=== PATIENT | male | born 1945 | race Caucasian/White ===

== ENCOUNTER 2021-10-21 09:38 | Outpatient (REF) | payer MEDICARE, OTHER, SELFPAY ==
[2021-10-21 12:30] LABS: Vitamin B12 247 pg/mL (200-900)
== END 2021-10-21 09:39 | disposition home or self-care (01) ==
LOC: HO.LAB 09:38
PROVIDERS: Visit Provider Psychiatry & Neurology Neurology
DX: G20 Parkinson's disease (principal)
CPT/HCPCS: 36415; 82607

== ENCOUNTER 2023-06-23 07:34 | Outpatient (AMB) | payer MEDICARE, OTHER, SELFPAY ==
--- NOTE | 2023-06-23 07:41 | MHC.OFFVIS ---
Intake Vital Signs 06/23/23 07:49 Height 5 ft 6 in Weight 200 lb BMI 32.3 BP 168/90 H Blood Pressure Location Rt brachial Position Sitting Respiration 17 Pulse 65 Pulse Source Pulse Oximeter Pulse Oximetry (%) 98 Oxygen Delivery Method Room Air Intake Visit Reasons: Parkinsons/Dementia Intake Note: Pt presents for new pt evaluation for Parkinson's and Alzheimer's. Office Technology Instructor Required: No Allergies Penicillins Allergy (Mild, Verified 06/23/23 07:43) Rash HPI HPI Comments History of Present Illness Details 77y/o male comes for further management of dementia, Parkinsons disease and frequent falls. He is accompanied by his son who helps with history . He was diagnosed with Parkinsons disease about 6-7 years ago while he was residing in [place]. His main symptoms were slow movement , slow walking with loss of balance . He moved to [place] to live with his son about 3 years ago and now he is in a Memory Care Unit Assisted Living at [facility] .He was diagnosed with Dementia by a neurologist about 3 years ago. His current issues are impulsive behavior and frequent falls, hallucinations. He is dependant on all his ADLs except for feeding himself. 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 His falls are usually when he walks backwards , side ways or bending down . He also falls when he is transitioning and most falls are impulsive and daily. He is in a wheel chair and has 1 on 1 supervision for 8 hrs a day.He denies dizziness. His falls are mostly late at night , morning. He has on and off hallucinations- mild and delusions.His cognition is worse in the evening and he had more delusions No known family h/o dementia [facility] Medical History (Updated 06/23/23 @ 08:42 by Giselle Renteria MD) Frequent falls Dementia Parkinson's disease without dyskinesia Tricuspid regurgitation Skin cancer Arthritis Orthostatic hypotension Gout HTN (hypertension) Endocarditis BPH (benign prostatic hyperplasia) Pericarditis Angina at rest Surgical History S/P Mohs surgery for basal cell carcinoma H/O eye surgery Social History Household Members: Other Housing: Assisted Living Facility Alcohol intake: never Patient Tobacco Use Status: Never used Tobacco Use of substances other than those prescribed or required for medical reasons: No Physical Exam Vital Signs: Last Vital Signs Pulse 65 06/23/23 07:49 Resp 17 06/23/23 07:49 BP 168/90 H 06/23/23 07:49 Pulse Ox 98 06/23/23 07:49 Oxygen Delivery Method Room Air 06/23/23 07:49 BMI result Body Mass Index 32.3 Const General: cooperative and no acute distress Nutritional Appearance: average body habitus Orientation/consciousness: oriented to place Neuro Other: Moderately decreased facial expression and blink No tremors Moderate bradykinesia L>R No cog wheel rigidity FFM and foot taps mildly decreased L>R Voice- hypophonia In wheel chair - very impulsive while walking - needed assistance due to poor balance, stooped small steps General: oriented to place, moves all extremities and no focal motor deficits Cranial nerves: Yes Bilaterally intact EOM present, Yes Nystagmus not present, Yes Normal facial strength present and Yes Midline tongue present Cognition (Neuro): abnormal cognition Motor exam (neuro): 5/5 motor strength present throughout and Normal motor muscle tone present throughout Deep tendon reflexes (DTR's): Right triceps reflex intensity grade: 2+, Left triceps reflex intensity grade: 2+, Rt Biceps (C5, C6): 2+, Left biceps reflex intensity grade: 2+, Right brachioradialis reflex intensity grade: 2+, Left brachioradialis reflex intensity grade: 2+, Right patellar reflex intensity grade: 2+ and Left patellar reflex intensity grade: 2+ Coordination: [id number] test normal Orientation Where are we (state) (county) (town or city) (hospital) (floor)?: state, county, town or city, hospital/clinic and floor Registration Name of 3 unrelated objects clearly and slowly, then ask patient to repeat all 3 of them. (1st repeat determines score. Make sure they can repeat all three): object 2 and object 3 Attention & Calculation (CHOOSE ONE) Spell WORLD backwards (DLROW): 3 letters Recall Ask patient to repeat the 3 items from question #3.: object 3 Language Show patient a wristwatch & ask what it is. Repeat for pencil.: watch and pencil Ask the patient to 'take a piece of paper with their right hand' 'fold paper in half' 'place paper on floor': take paper in right hand Score Score: 14 Assessment & Plan Assessment & Plan (1) Dementia: Comment: Likely Alzheimers- advanced with sundowning delusions and hallucinations Code(s): F03.90 - Unspecified dementia, unspecified severity, without behavioral disturbance, psychotic disturbance, mood disturbance, and anxiety (2) Parkinson's disease without dyskinesia: Code(s): G20.A1 - Parkinson's disease without dyskinesia, without mention of fluctuations (3) Orthostatic hypotension: Code(s): I95.1 - Orthostatic hypotension (4) Frequent falls: Comment: cognitive and behavioral falls due to impulsivity poor judgement Code(s): R29.6 - Repeated falls Plan Change carbidopa/levodopa to 1.5tabs qid Continue rivastigmine 1.5mg bid Trial patient on memantine XR 7mg qd and titrate by 7 mg every 2 weeks to a maximum of 28mg qd He needs constant supervision to avoid falls . Coding Level of Care Code New Pt Level 4 (88272) Diagnoses Dementia F03.90 Parkinson's disease without dyskinesia G20.A1 Orthostatic hypotension I95.1 Frequent falls R29.6
[2023-06-23 07:49] VITALS: BP 168/90; PULSE 65; RESP 17; O2SAT 98; BMI 32.3
== END 2023-06-23 08:48 | disposition home or self-care (01) ==
PROVIDERS: PCP Nurse Practitioner Acute Care; Visit Provider Psychiatry & Neurology Neurology
DX: F03.90 Unspecified dementia, unspecified severity, without behavioral disturbance, psychotic disturbance, mood disturbance, and anxiety (principal); G20.A1 Parkinson's disease without dyskinesia, without mention of fluctuations; I95.1 Orthostatic hypotension; R29.6 Repeated falls
CPT/HCPCS: 99204

== ENCOUNTER → 2023-06-23 07:34 | Outpatient (BNVA) | payer MEDICARE, OTHER, SELFPAY | PROVIDERS: Visit Provider Psychiatry & Neurology Neurology | DX: G20.A1 Parkinson's disease without dyskinesia, without mention of fluctuations (principal); F03.90 Unspecified dementia, unspecified severity, without behavioral disturbance, psychotic disturbance, mood disturbance, and anxiety; I95.1 Orthostatic hypotension; R29.6 Repeated falls | CPT/HCPCS: 99202 ==

== ENCOUNTER 2023-09-08 06:56 | Outpatient (REF) | payer MEDICARE, OTHER, SELFPAY ==
[2023-09-08 07:00] LABS: MANUAL DIFF FLAG NO
[2023-09-08 07:47] LABS: Basophils Percent Auto 0.5 % (0-2); Eosinophils Absolute Auto 0.1 X10*3/uL (0.0-0.4); Eosinophils Percent Auto 1.6 % (0-4); Hematocrit 41.2 % (42.0-52.0); Hemoglobin 13.8 g/dl (14.0-18.0); Imm Gran Abs Auto 0.06 X10*3/uL (0.00-0.03); Imm Gran Pct Auto 0.8 % (0.0-0.4); Lymphocytes Absolute Auto 1.8 X10*3/uL (1.2-4.9); Lymphocytes Percent Auto 23.3 % (20-40); Mean Corpuscular HGB Conc 33.5 g/dl (31.0-36.0); Mean Corpuscular Hemoglobin 28.8 pg (27.0-33.0); Mean Platelet Volume 9.5 fL (9.4-12.4); Monocytes Absolute Auto 0.5 X10*3/uL (0.1-1.2); Monocytes Percent Auto 6.2 % (2-11); Neutrophils Absolute Auto 5.2 x10*3/uL (2.0-8.3); Neutrophils Percent Auto 67.6 % (45-73); Platelet Count 188 X10*3/uL (160-400); Red Blood Count 4.79 X10*6/uL (4.60-5.80); Red Cell Distribution Width 15.1 % (11.0-16.0); White Blood Count 7.7 X10*3/uL (4.8-10.8)
[2023-09-08 08:06] LABS: Alanine Aminotransferase 6 U/L (0-40); Albumin Level 4.2 g/dL (3.5-5.0); Alkaline Phosphatase 102 U/L (39-117); Anion Gap 13 (12-20); Aspartate Amino Transferase 11 U/L (5-37); Bilirubin Total 0.6 mg/dL (0.0-1.0); Blood Urea Nitrogen 15 mg/dL (9-16); Calcium 9.2 mg/dL (8.4-10.2); Carbon Dioxide 25 mmol/L (22-29); Chloride 109 mmol/L (96-108); Cholesterol 107 mg/dL (<200); Estimated Glomerular Filt Rate > 60; Glucose Random 87 mg/dL (60-115); HDL Cholesterol 29 mg/dL (>40); LDL Cholesterol Calculated 65 mg/dL (<100); Magnesium 2.1 mg/dL (1.6-2.6); Sodium 143 mmol/L (135-145); Total Protein 6.3 g/dL (6.5-8.0); Triglycerides 65 mg/dL (<150)
[2023-09-08 08:21] LABS: Thyroid Stimulating Hormone 1.93 uIU/mL (0.32-4.0); Vitamin D 25-OH Total 25.4 ng/mL (>30)
[2023-09-08 08:30] LABS: Vitamin B12 529 pg/mL (200-900)
[2023-09-10 23:43] LABS: TS Negative Control Passed; TS Panel A 1; TS Panel B 0; TS Positive Control Passed; TSpotTB Negative (Negative)
== END 2023-09-08 06:57 | disposition home or self-care (01) ==
LOC: HO.HSH1N 06:56
PROVIDERS: Visit Provider Internal Medicine Interventional Cardiology
DX: I10 Essential (primary) hypertension (principal); E78.5 Hyperlipidemia, unspecified
CPT/HCPCS: 36415; 80053; 80061; 82306; 82607; 83735; 84443; 85025; 86481

== ENCOUNTER 2023-09-19 00:35 | Outpatient (REF) | payer MEDICARE, OTHER, SELFPAY ==
[2023-09-19 00:54] LABS: Appearance Urine Clear; Color Urine Yellow; Glucose Urine UA Negative (Negative); Leukocyte Esterase Urine Negative (Negative); Nitrite Urine Negative (Negative); Urine Blood Negative (Negative); Urine Ketones Trace mg/dL (Negative); Urine Protein Negative (Neg-Trace)
== END 2023-09-19 00:36 | disposition home or self-care (01) ==
LOC: HO.LNP 00:35
PROVIDERS: PCP Nurse Practitioner Acute Care; Visit Provider Nurse Practitioner Acute Care
DX: R30.0 Dysuria (principal); R45.1 Restlessness and agitation
CPT/HCPCS: 81003

== ENCOUNTER 2023-10-27 23:05 | Emergency (ER) | payer MEDICARE, OTHER, SELFPAY ==
--- NOTE | ~2023-10-27 | CT_ITS ---
EXAMINATION: HEAD CT WITHOUT CONTRAST CERVICAL SPINE CT WITHOUT CONTRAST CLINICAL INFORMATION: Head strike. Fall. Pain. Right neck pain. COMPARISON: None. TECHNIQUE: Contiguous axial imaging of the head was performed without the administration of IV contrast. Axial multidetector volumetric images were also performed through the cervical spine without intravenous contrast. Multiplanar reconstructed images in coronal and sagittal orientations were submitted. This CT examination was performed using dose optimization techniques as appropriate, variously including the following: *Automated exposure control *Adjustment of mA and/or kV according to patient size (this includes techniques or standardized protocols for targeted exams where dose is matched to indication/reason for exam; i.e. extremities or head) *Use of iterative reconstruction technique DOSE: 1041 mGy-cm FINDINGS: HEAD: There is no evidence of acute intracranial hemorrhage or territorial infarction. No abnormal mass-effect or midline shift. No extra-axial fluid collections. Palafox to white matter differentiation is well preserved. Moderate enlargement of the ventricles, sulci, and extra-axial CSF spaces is indicative of parenchymal volume loss. A few foci of hypoattenuation in the subcortical and periventricular white matter are most consistent with chronic microangiopathic changes. Calcific atherosclerosis is present within the cavernous segments of the internal carotid arteries. Globes are pseudophakic. Focal subcutaneous edema is noted in the left posterolateral scalp. No hematoma. No fracture or malalignment. The sinuses and mastoid air cells are clear. CERVICAL SPINE: Vertebral body heights are normal. No fractures of the vertebral bodies or posterior elements. There is grade 1 anterolisthesis of C7 on T1 by 3 mm, likely related to facet arthropathy at this level. No additional spondylolisthesis.. Degenerative changes are present at the craniocervical and atlantoaxial articulations, though normal alignment is maintained. Mild to moderate multilevel degenerative disc disease in cervical spine is characterized primarily by large anterior osteophytes. Multiple osteophytes are fragmented, though these sites of fragmentation does not appear acute. Specifically, no acute fractures are identified at the osteophytes. Moderate multilevel facet arthropathy. Posterior disc ascitic protrusion the cervical spine at C2-C3, C3-C4, and C6-C7 produce at least [id number] central canal narrowing. Uncovertebral and facet osteophytes produce neural foraminal encroachment on the left C3-C4 and on the right at C6-C7. No significant paravertebral soft tissue swelling. Atherosclerotic calcifications are present in the carotid arteries. Imaged portions of the lung apices are clear. CT/CT cervical spine wo IV con IMPRESSION: 1. No acute intracranial pathology. Focal subcutaneous edema in the left posterolateral scalp. No underlying fractures. 2. No acute fracture or acute malalignment in the cervical spine. 3. Mild to moderate multilevel degenerative disc disease and facet arthropathy with grade 1 anterolisthesis of C7 on T1.
--- NOTE | ~2023-10-27 | CT_ITS ---
EXAMINATION: HEAD CT WITHOUT CONTRAST CERVICAL SPINE CT WITHOUT CONTRAST CLINICAL INFORMATION: Head strike. Fall. Pain. Right neck pain. COMPARISON: None. TECHNIQUE: Contiguous axial imaging of the head was performed without the administration of IV contrast. Axial multidetector volumetric images were also performed through the cervical spine without intravenous contrast. Multiplanar reconstructed images in coronal and sagittal orientations were submitted. This CT examination was performed using dose optimization techniques as appropriate, variously including the following: *Automated exposure control *Adjustment of mA and/or kV according to patient size (this includes techniques or standardized protocols for targeted exams where dose is matched to indication/reason for exam; i.e. extremities or head) *Use of iterative reconstruction technique DOSE: 1041 mGy-cm FINDINGS: HEAD: There is no evidence of acute intracranial hemorrhage or territorial infarction. No abnormal mass-effect or midline shift. No extra-axial fluid collections. Palafox to white matter differentiation is well preserved. Moderate enlargement of the ventricles, sulci, and extra-axial CSF spaces is indicative of parenchymal volume loss. A few foci of hypoattenuation in the subcortical and periventricular white matter are most consistent with chronic microangiopathic changes. Calcific atherosclerosis is present within the cavernous segments of the internal carotid arteries. Globes are pseudophakic. Focal subcutaneous edema is noted in the left posterolateral scalp. No hematoma. No fracture or malalignment. The sinuses and mastoid air cells are clear. CERVICAL SPINE: Vertebral body heights are normal. No fractures of the vertebral bodies or posterior elements. There is grade 1 anterolisthesis of C7 on T1 by 3 mm, likely related to facet arthropathy at this level. No additional spondylolisthesis.. Degenerative changes are present at the craniocervical and atlantoaxial articulations, though normal alignment is maintained. Mild to moderate multilevel degenerative disc disease in cervical spine is characterized primarily by large anterior osteophytes. Multiple osteophytes are fragmented, though these sites of fragmentation does not appear acute. Specifically, no acute fractures are identified at the osteophytes. Moderate multilevel facet arthropathy. Posterior disc ascitic protrusion the cervical spine at C2-C3, C3-C4, and C6-C7 produce at least [id number] central canal narrowing. Uncovertebral and facet osteophytes produce neural foraminal encroachment on the left C3-C4 and on the right at C6-C7. No significant paravertebral soft tissue swelling. Atherosclerotic calcifications are present in the carotid arteries. Imaged portions of the lung apices are clear. CT/CT head/brain wo IV con IMPRESSION: 1. No acute intracranial pathology. Focal subcutaneous edema in the left posterolateral scalp. No underlying fractures. 2. No acute fracture or acute malalignment in the cervical spine. 3. Mild to moderate multilevel degenerative disc disease and facet arthropathy with grade 1 anterolisthesis of C7 on T1.
[2023-10-27 23:25] VITALS: BP 136/93; BP 144/86; PULSE 59; RESP 18; TEMP 36.8; O2SAT 100; O2SAT 97; BMI 32.1
--- NOTE | 2023-10-27 23:48 | ED.FALL ---
HPI - Fall General Chief Complaint: Fall Stated Complaint: fall Time Seen by Provider: 10/27/23 23:39 Source: patient and EMS Mode of arrival: EMS Limitations: no limitations History of Present Illness ED Provider: Dr. Debbie Winters HPI Narrative: [facility]. Patient states that he was transferring from his wheelchair to a chair, his wheelchair got away and he landed on the floor hitting the back of his head. Patient denies loss of consciousness, patient complaining of right-sided neck pain posteriorly. Patient denies any extremity pain or back pain. Patient known to take Plavix. Related Data Home Medications ?Medication ?Instructions ?Recorded ?Confirmed allopurinol 100 mg tablet 100 mg PO DAILY 06/23/23 atorvastatin 20 mg tablet 20 mg PO DAILY 06/23/23 calcium carbonate (Antacid 200 mg PO BID 06/23/23 (calcium carbonate)) carbidopa 25 mg-levodopa 100 mg 2 tab PO QID 06/23/23 tablet (Sinemet) clopidogrel 75 mg tablet (Plavix) 75 mg PO DAILY 06/23/23 folic acid 1 mg tablet 1 mg PO DAILY 06/23/23 magnesium oxide 200 mg PO DAILY 06/23/23 mecobalamin (vitamin B12) 1,000 1,000 mcg PO DAILY 06/23/23 mcg chewable tablet melatonin 3 mg capsule 3 mg PO BEDTIME PRN 06/23/23 nystatin 100,000 unit/gram topical 1 appl topical DAILY 06/23/23 powder pantoprazole 20 mg tablet,delayed 20 mg PO DAILY 06/23/23 release prednisone 10 mg tablet 10 mg PO DIRECTED 06/23/23 psyllium husk 0.4 gram capsule 0.4 g PO DAILY 06/23/23 (Daily Fiber) quetiapine 25 mg tablet (Seroquel) 25 mg PO BEDTIME 06/23/23 rivastigmine tartrate 1.5 mg 1.5 mg PO BID 06/23/23 capsule sennosides 8.6 mg capsule (senna) 8.6 mg PO BEDTIME 06/23/23 sertraline 100 mg tablet 100 mg PO DAILY 06/23/23 tamsulosin 0.4 mg capsule 0.4 mg PO DAILY 06/23/23 valsartan 40 mg tablet 40 mg PO BID 06/23/23 Allergies Allergy/AdvReac Type Severity Reaction Status Date / Time Penicillins Allergy Mild Rash Verified 10/27/23 23:28 Review of Systems Review of Systems: Constitutional : No Weight loss, No Fever, No Chills, No Night Sweats, No Fatigue, No Malaise ENT/Mouth : No Hearing loss, No Ear Pain, No Nasal Congestion, No Sinus Pain, No Hoarseness, No sore throat, No Rhinorrhea, No Swallowing Difficulty Eyes: No Eye Pain, No Swelling, No Redness, No Foreign Body, No Discharge, No Vision Changes Cardiovascular : No Chest Pain, No SOB, No Dyspnea on Exertion, No Orthopnea, No Edema, No Palpitations Respiratory : No Cough, No Sputum, No Wheezing, No Smoke Exposure, No Dyspnea Gastrointestinal : No Nausea, No Vomiting, No Diarrhea, No Constipation, No abdominal Pain, No Hematochezia, No Melena Genitourinary : no irregular bleeding, No Dysuria, No Urinary Frequency, No Hematuria, No Urinary Incontinence, No Urgency, No Flank Pain, No Urinary Flow Changes, No Hesitancy Musculoskeletal : Complaining of right-sided neck pain, No Myalgias, No Joint Swelling Skin : No Skin Lesions, No rash Neuro : No Weakness, No Numbness, No Paresthesias, No Loss of Consciousness, No Dizziness, No Headache Psych : No Anxiety/Panic, No Depression, No SI/HI/AH/VH, No Social Issues, Heme/Lymph: No Bruising, No Bleeding,No Lymphadenopathy Endocrine : No Polyuria, No Polydipsia, No Temperature Intolerance PMFSH Past Medical History Medical History Frequent falls Dementia Parkinson's disease without dyskinesia Tricuspid regurgitation Skin cancer Arthritis Orthostatic hypotension Gout HTN (hypertension) Endocarditis BPH (benign prostatic hyperplasia) Pericarditis Angina at rest Surgical History S/P Mohs surgery for basal cell carcinoma H/O eye surgery Social History Social History Household Members: Other Housing: Assisted Living Facility Alcohol intake: never Patient Tobacco Use Status: Never used Tobacco Smoked in Last 30 Days: No Use of substances other than those prescribed or required for medical reasons: No Advance Directives: No Advance Directives Information Provided: Yes Do you have a plan to hurt others: No Plan Physical Exam Vital Signs: Vital Signs: Last Vital Signs Temp 98.0 F 10/28/23 00:39 Pulse 61 10/28/23 00:39 Resp 18 10/28/23 00:39 BP 180/98 H 10/28/23 00:39 Pulse Ox 96 10/28/23 00:39 O2 Del Method Room Air 10/28/23 00:39 BMI result Body Mass Index 32.1 Const: Other: Appearance: Alert. Oriented X2. No acute distress. Eyes: Pupils equal, round and reactive to light. ENT: Pharynx normal. Neck: Patient on C-collar, pain to palpation on the right aspect of the neck CVS: Normal heart rate and rhythm. Pulses normal. Normal S1 and S2 Respiratory: No respiratory distress. Breath sounds normal. No Wheezing. No rales Abdomen: Soft and nontender. No rigidity. No distention. Skin: Skin warm and dry. Normal skin color. Normal skin turgor. Extremities: No lower extremity edema. No Lacerations. No Rash Neuro: Oriented X 2. No motor deficit. No sensory deficit. Moving all extremities. No slurred speech. CN 2 through 12 grossly intact Psych: calm, cooperative, normal affect Course Course Course Narrative: -patient's vitals are stable, patient declined pain medication, states that he feels well -CT scans and urinalysis pending Medical Decision Making Medical Decision Making [facility] Narrative: -my interpretation of labs: Urinalysis negative -my interpretation of CT scan: No intracranial bleed, no acute findings. -[facility] Differential Diagnosis Differential Diagnoses: The differential diagnosis associated with the presentation includes (Mechanical fall, UTI, generalized weakness, deconditioning, Parkinson's, cervical spine injury, intracranial bleed) Admission/Observation Consideration of admission/observation: Escalation of care including admission/observation considered (Given patient's complaint of pain and mechanism of injury, observation was considered) Lab Data [facility] Lab Attestation statement: I reviewed the patient's lab results. Labs: Lab Results 10/28/23 Range/Units 00:14 Urine Color Yellow Urine Appearance Clear Urine pH 5.5 (5.0-9.0) Ur Specific [place] 1.010 (1.005-1.025) Urine Protein Negative (Neg-Trace) mg/dL Urine Glucose (UA) Negative (Negative) mg/dL Urine Ketones Negative (Negative) mg/dL Urine Blood Negative (Negative) Urine Nitrite Negative (Negative) Ur Leukocyte Esterase Negative (Negative) Independent Interpretation I performed an independent interpretation of an: CT Scan Interpretation: HEAD: There is no evidence of acute intracranial hemorrhage or territorial infarction. No abnormal mass-effect or midline shift. No extra-axial fluid collections. Palafox to white matter differentiation is well preserved. Moderate enlargement of the ventricles, sulci, and extra-axial CSF spaces is indicative of parenchymal volume loss. A few foci of hypoattenuation in the subcortical and periventricular white matter are most consistent with chronic microangiopathic changes. Calcific atherosclerosis is present within the cavernous segments of the internal carotid arteries. Globes are pseudophakic. Focal subcutaneous edema is noted in the left posterolateral scalp. No hematoma. No fracture or malalignment. The sinuses and mastoid air cells are clear. CERVICAL SPINE: Vertebral body heights are normal. No fractures of the vertebral bodies or posterior elements. There is grade 1 anterolisthesis of C7 on T1 by 3 mm, likely related to facet arthropathy at this level. No additional spondylolisthesis.. Degenerative changes are present at the craniocervical and atlantoaxial articulations, though normal alignment is maintained. Mild to moderate multilevel degenerative disc disease in cervical spine is characterized primarily by large anterior osteophytes. Multiple osteophytes are fragmented, though these sites of fragmentation does not appear acute. Specifically, no acute fractures are identified at the osteophytes. Moderate multilevel facet arthropathy. Posterior disc ascitic protrusion the cervical spine at C2-C3, C3-C4, and C6-C7 produce at least [id number] central canal narrowing. Uncovertebral and facet osteophytes produce neural foraminal encroachment on the left C3-C4 and on the right at C6-C7. No significant paravertebral soft tissue swelling. Atherosclerotic calcifications are present in the carotid arteries. Imaged portions of the lung apices are clear. CT/CT head/brain wo IV con IMPRESSION: 1. No acute intracranial pathology. Focal subcutaneous edema in the left posterolateral scalp. No underlying fractures. 2. No acute fracture or acute malalignment in the cervical spine. 3. Mild to moderate multilevel degenerative disc disease and facet arthropathy with grade 1 anterolisthesis of C7 on T1. Critical Care Time Critical Care Time Critical Care Time: Yes Total Critical Care Time: 35 Attestation: I have personally provided critical care time. Time includes review of lab data, radiology results, discussion with consultants, and monitoring for potential decompensation. Intervention performed as documented. Discharge Plan Discharge Clinical Impression: Frequent falls Patient Disposition: er [facility] Instructions: Fall Prevention for Older Adults (ED) Additional Instructions: Please follow-up with your primary care physician tomorrow. If you have any worsening or new symptoms, please return to the emergency room or call 911 Prescriptions: No Action tamsulosin 0.4 mg capsule 0.4 mg PO DAILY clopidogrel [Plavix] 75 mg tablet 75 mg PO DAILY mecobalamin (vitamin B12) 1,000 mcg tablet,chewable 1,000 mcg PO DAILY allopurinol 100 mg tablet 100 mg PO DAILY sertraline 100 mg tablet 100 mg PO DAILY calcium carbonate [Antacid (calcium carbonate)] 200 mg calcium (500 mg) tablet,chewable 200 mg PO BID magnesium oxide 200 mg magnesium tablet 200 mg PO DAILY psyllium husk [Daily Fiber] 0.4 gram capsule 0.4 g PO DAILY quetiapine [Seroquel] 25 mg tablet 25 mg PO BEDTIME rivastigmine tartrate 1.5 mg capsule 1.5 mg PO BID nystatin 100,000 unit/gram powder 1 appl topical DAILY melatonin 3 mg capsule 3 mg PO BEDTIME PRN folic acid 1 mg tablet 1 mg PO DAILY senna 8.6 mg capsule 8.6 mg PO BEDTIME pantoprazole 20 mg tablet,delayed release (DR/EC) 20 mg PO DAILY atorvastatin 20 mg tablet 20 mg PO DAILY carbidopa-levodopa [Sinemet] 25-100 mg tablet 2 tab PO QID prednisone 10 mg tablet 10 mg PO DIRECTED Rx Instructions: see taper instructions valsartan 40 mg tablet 40 mg PO BID Rx Instructions: 1.5 tabs daily Print Language: Kinyarwanda
[2023-10-28 00:21] LABS: Appearance Urine Clear; Color Urine Yellow; Glucose Urine UA Negative (Negative); Leukocyte Esterase Urine Negative (Negative); Nitrite Urine Negative (Negative); PH 5.5 (5.0-9.0); Urine Blood Negative (Negative); Urine Ketones Negative (Negative); Urine Protein Negative (Neg-Trace)
[2023-10-28 00:39] VITALS: BP 180/98; PULSE 61; RESP 18; TEMP 36.7; O2SAT 96
--- NOTE | 2023-10-28 00:40 | MHC.EDTECH ---
Rounds and vitals completed,BP is elevated RN made aware, Patient was incont. of a large amount of urine,felicitas care given and linen changed,pt repositioned to comfort,call solitario in reach
--- NOTE | 2023-10-28 01:03 | PC.NURSE ---
C-Collar removed per Dr. Winters
[2023-10-28 01:10] VITALS: BP 180/98; PULSE 61; RESP 18; TEMP 36.7; O2SAT 96
--- NOTE | 2023-10-28 01:15 | PC.NURSE ---
Spoke with Natali DOWD table games floor supervisor at [facility] to let her know the results of CT and urinalysis. Patient will return via ambulance
== END 2023-10-28 01:30 | disposition skilled nursing facility (03) ==
PROVIDERS: Emergency Provider Emergency Medicine
DX: S09.90XA Unspecified injury of head, initial encounter (principal); M54.2 Cervicalgia; R51.9 Headache, unspecified; W05.0XXA Fall from non-moving wheelchair, initial encounter; Y93.89 Activity, other specified; Y92.89 Other specified places as the place of occurrence of the external cause; Y99.8 Other external cause status
CPT/HCPCS: 70450; 72125; 81003; 99284

== ENCOUNTER 2024-03-14 18:27 | Outpatient (REF) | payer MEDICARE, OTHER, SELFPAY ==
--- OUTSIDE RECORDS SUMMARY | 2024-03-14 18:30 | XMS_ITS | Continuity of Care Document ---
Author Organization [facility] Address [address] [place] [address] Phone Care Team Providers Care Sales Account Leader Name Role Phone Unavailable Unavailable Unavailable Procedures Procedure Date EKG Interpretation Advance Directives Directive Yes / No Effective Date File Name No Information Encounters Encounter Description Practice Location Reason(s) For Visit Diagnoses Date Provider Providers Copied on Encounter [facility], [address], [place], [place], [id number], [place] tel:[phone] [facility] [place] Information No Information Referring Provider: Torrey Mcgovern D, [address] [facility], [address], [place], [address]. tel:[phone] Family History Family Member Type Diagnosis Age At Onset No Information Payers Payer name Insurance type Covered green party ID Authoriza tion(s) Medicare MB [id number] [facility] CI [id number] Social History Type Description Quantity Date Captured Comments Sex Male Smoking Status No Information Chief Complaint And Reason For Visit No Information Reason For Referral Reason For Referral No Information History Of Present Illness Encounter Date Complaint History Of Prese nt Illness No Information Functional Status Date Functional Assessmen t No Information Instructions Date Instruction Additional Infor mation No Information Assessments Type Assessment Date No Information Patient Care Teams Name Effective Dates (start - stop) Status Members No Information
--- OUTSIDE RECORDS SUMMARY | 2024-03-14 18:30 | XMS_ITS | Continuity of Care Document ---
Author Organization [facility] Address [address] [place] [address] [place] [address]- Care Team Providers Care Technician Terminal And Repeater Name Role Phone Not on Staff, PCP Primary Care Physician Unavail able Encounter [facility] [place] Date(s): 02/09/24 - 03/10/24 [facility] [address] [place] [address] Drive [address] [place] [address]- Encounter Type: Triage Allergies, Adverse Reactions, Alerts Substance Criticality Severity Reaction Reaction Severity Status penicillin Joint swelling. Act mahogany Immunizations Given and Recorded Vaccine Date Status Refusal Reason tetanus/diphtheria/pertussis, acel(Tdap) 10/21/22 Given tetanus/diphtheria/pertussis, acel(Tdap) 06/28/07 Recorded influenza virus vaccine, inactivated 12/21/13 Rock rded influenza virus vaccine, inactivated 01/10/13 Rock rded influenza virus vaccine, inactivated 01/21/12 Rock rded influenza virus vaccine, inactivated 12/08/10 Rock rded influenza virus vaccine, inactivated 12/13/09 Rock rded influenza virus vaccine, inactivated 12/13/08 Rock rded influenza virus vaccine, inactivated 12/19/07 Rock rded influenza virus vaccine, inactivated 02/19/06 Rock rded influenza virus vaccine, inactivated 01/14/05 Rock rded pneumococcal 23-valent vaccine 07/21/11 Recorded Medications allopurinol 100 mg oral tablet 100 mg, 1, tablet, By Mouth, Daily, Refills 0, Maintenance, 06/22/22 8:00:00 AM EDT, Partial fill upon patient request if the prescription is for a schedule II opioid drug. Start Date: 06/22/22 Status: Ordered Repeat number: 1 atorvastatin 20 mg oral tablet 1 tablet = 20 mg, By Mouth, Daily, Maintenance, 01/13/23 3:54:00 PM EDT, Tablet, Partial fill upon patient request if the prescription is for a schedule II opioid drug. Start Date: 01/13/23 Status: Ordered Repeat number: 1 carbidopa-levodopa 25 mg-100 mg oral tablet 2 tablet, By Mouth, 4 times a day, 0 Refills, Maintenance, 01/13/23 4:07:00 PM EDT, Tablet, Partial fill upon patient request if the prescription is for a schedule II opioid drug. Start Date: 01/13/23 Status: Ordered Repeat number: 1 cholecalciferol 1000 intl units oral capsule 1 capsule = 25 mcg, By Mouth, Daily, Maintenance, 01/14/23 4:05:00 PM EDT, Capsule, Partial fill upon patient request if the prescription is for a schedule II opioid drug. Start Date: 01/14/23 Status: Ordered Repeat number: 1 clopidogrel 75 mg oral tablet 75 mg, 1, tablet, By Mouth, Daily, Refills 0, Maintenance, 06/22/22 8:02:00 AM EDT, Partial fill upon patient request if the prescription is for a schedule II opioid drug. Start Date: 06/22/22 Status: Ordered Repeat number: 1 folic acid 1 mg oral tablet 1 mg, 1, tablet, By Mouth, Every Wednesday, Wednesday and Wednesday, Refills 0, Maintenance, 01/13/23 3:55:00 PM EDT, Partial fill upon patient request if the prescription is for a schedule II opioid drug. Start Date: 01/13/23 Status: Ordered Repeat number: 1 ketoconazole 2% topical shampoo 1 application, Topically, Once, # 120 mL, 0 Refills, Maintenance, 06/18/23 4:06:00 PM EDT, Shampoo, Partial fill upon patient request if the prescription is for a schedule II opioid drug. Start Date: 06/18/23 Status: Ordered Quantity: 120.0 Unit: mL Repeat number: 1 lactulose 10 gm/15 ml oral syrup 5 mL = 3.333 Gm, By Mouth, 2 times a day, Hold for loose stools, Maintenance, 08/14/21 11:58:00 AM EDT, Syrup, ; Start Date: 08/14/21 Status: Ordered Repeat number: 1 Lagevrio 200 mg oral capsule TAKE 4 CAPSULE BY MOUTH TWICE A DAY X 5 DAYS Start Date: 06/18/23 Status: Ordered Repeat number: 1 melatonin 3 mg oral tablet 2 tablet = 6 mg, By Mouth, Daily at bedtime, 0 Refills, Maintenance, 01/13/23 3:56:00 PM EDT, Partial fill upon patient request if the prescription is for a schedule II opioid drug. Start Date: 01/13/23 Status: Ordered Repeat number: 1 nitroglycerin 0.3 mg sublingual tablet 1 tablet = 0.3 mg, Sublingual, Every 5 minutes, PRN as needed for chest pain, not to exceed 3 doses/15 min--if pain persists, seek medical attention, # 100 tablet, 0 Refills, Maintenance, 04/01/22 2:28:00 PM EST, Tablet, Partial fill upon patient request if the prescription is for a schedule II opioid drug. Start Date: 04/01/22 Status: Ordered Quantity: 100.0 Unit: tablet Repeat number: 1 pantoprazole 20 mg oral delayed release tablet 1 tablet = 20 mg, By Mouth, Daily, 0 Refills, Maintenance, 01/13/23 3:57:00 PM EDT, CR Tablet Start Date: 01/13/23 Status: Ordered Repeat number: 1 QUEtiapine 25 mg oral tablet 12.5 mg, 0.5, tablet, By Mouth, Daily at bedtime, Refills 0, Maintenance, 01/13/23 3:57:00 PM EDT, Partial fill upon patient request if the prescription is for a schedule II opioid drug. Start Date: 01/13/23 Status: Ordered Repeat number: 1 Refresh - solution 1-2 drops, Eyes, Both, 4 times a day, PRN Dry Eyes, up to 6 times a day, 0 Refills, Maintenance, 01/13/23 4:09:00 PM EDT, Partial fill upon patient request if the prescription is for a schedule II opioid drug. Start Date: 01/13/23 Status: Ordered Repeat number: 1 rivastigmine 1.5 mg oral capsule 1.5 mg, 1, capsule, By Mouth, 2 times a day, Refills 0, Maintenance, 01/13/23 4:07:00 PM EDT, Partial fill upon patient request if the prescription is for a schedule II opioid drug. Start Date: 01/13/23 Status: Ordered Repeat number: 1 Salonpas Large Pain Relief Patch 3%-10% topical film 1 patch, Topically, Daily, PRN as needed for pain, apply to low back, 0 Refills, Maintenance, 01/13/23 3:59:00 PM EDT, Film, Partial fill upon patient request if the prescription is for a schedule II opioid drug. Start Date: 01/13/23 Status: Ordered Repeat number: 1 sertraline 50 mg oral tablet 1.5 tablet = 75 mg, By Mouth, Daily in AM, 0 Refills, Maintenance, 01/13/23 4:00:00 PM EDT, Partial fill upon patient request if the prescription is for a schedule II opioid drug. Start Date: 01/13/23 Status: Ordered Repeat number: 1 valsartan 40 mg oral tablet 80 mg, By Mouth, Daily at bedtime, Refills 0, Maintenance, 01/20/23 12:37:00 PM EST, Partial fill upon patient request if the prescription is for a schedule II opioid drug. Start Date: 01/20/23 Status: Ordered Repeat number: 1 Vitamin B12 50 mcg oral tablet 2 tablet = 100 mcg, By Mouth, Daily, Maintenance, 01/14/23 4:05:00 PM EDT, Tablet, Partial fill uponpatient request if the prescription is for a schedule II opioid drug. Start Date: 01/14/23 Status: Ordered Repeat number: 1 Problem List Condition Confirmation Course Effective Dates Status Health St atus Informant Ascending aortic aneurysm Confirmed Active Arthritis Confirmed Active Essential hypertension Confirmed Active Fall Confirmed Active Cancer of skin, face Confirmed Active Social History Social History Type Response Smoking Status Former smoker, quit more than 30 days ago; Other: Quit 1967; entered on: 02/04/21 Sex Male Sex Representation Male (finding) Patient Care team information Care Team Personnel Name: Mony Rowley RN Position: [facility] RN Member Role: Primary Care Nurse Name: Racheal Ortez RN Position: [facility] RN Member Role: Primary Care Nurse Name: Not on Staff, PCP Position: [facility] Physician (General Medicine) Member Role: PCP Name: Debbie Elena RN Position: [facility] AMB Nurse Member Role: Primary Care Nurse Name: Asiya Montano RN Position: [facility] RN Member Role: Primary Care Nurse Name: Kirsten Smith RN Position: [facility] RN Member Role: Primary Care Nurse Name: Cam Palmer RN Position: S RN Member Role: Primary Care Nurse Name: Ceci Keller RN, I Position: [facility] RN Member Role: Primary Care Nurse Care Team Related Persons Name: BETTYLIBRA Name: BETTYHARDIK Insurance Providers Guarantor name: PATEL HERNÁNDEZ Health Plan Information #: 1 Payer: MEDICARE A INPT 24 Member Number: NA Policy Number: NA Group Number: NA Health Plan Information #: 2 Payer: [facility] Member Number: NA Policy Number: NA Group Number: NA
--- OUTSIDE RECORDS SUMMARY | 2024-03-14 18:30 | XMS_ITS ---
Author Organization [facility], Address [address] [place] [address] Care Team Providers Care Inseam Trimmer Name Role Phone Richa Ledesma Unavailable ALLERGIES, ADVERSE REACTIONS, ALERTS Substance Code Code System Type Reaction Severity Status Start Date End Date Penicillins Unknown Drug allergy () 1 Penicillins RxNorm Drug allergy () 0 MEDICATIONS Medication Code Code System Start Date Stop Date Route Dosage Directions Fill Instructions Myrbetriq RxNorm 2 metoprolol RxNorm 2 latanoprost RxNorm 2 Glucosamine RxNorm 2 Fish Oil RxNorm 2 Aspirin Low Dose RxNorm 2 Protonix 0 RxNorm oral Lipitor 0 RxNorm oral Seroquel 0 RxNorm oral gabapentin RxNorm 01/30/20 21 carbidopa-levo dopa RxNorm 01/30/20 21 melatonin RxNorm 2 senna RxNorm 2 folic acid RxNorm 2 clopidogrel RxNorm 01/30/20 21 allopurinol RxNorm 01/30/20 21 tamsulosin RxNorm 01/30/20 21 lactulose RxNorm 2 Tylenol RxNorm 2 doxycycline hyclate 1521527 RxNorm 2 01/26/ 022 oral 1 B12 RxNorm 2 Salonpas RxNorm 2 PROBLEMS Problem Name Code Code System Start Date End Date Stat us Gout (274.9, M10.9) 58134615 [facility] 01/29/2021 Active Polyneuropathy, unspecified 635441964 [facility] 01/29/2021 Active Overactive bladder 070568479 [facility] 01/29/2021 Active Hypertension (401.9, I10) 04230506 [facility] 01/29/2021 Active Glaucoma 03080848 [facility] 01/29/2021 Active Parkinson's (332.0, G20) 88700536 [facility] 01/29/2021 Active Nondisplaced fracture of hea d of right radius, initial encounter for closed fracture (813.05, S52.124A) 362450241 [facility] 01/29/2021 Inactive Fall from bed, initial encou nter (W06.xxxA) [facility] 02/01/2021 Inactive Cellulitis 277995013 [facility] 01/19/2022 [facility] of [facility] Encounter Diagnosis Code Code System Date Stat us Encounter for removal of sutures 14609741 [facility] 04/16 Active IMMUNIZATIONS * None VITAL SIGNS Code Code System Vitals Name Date Value and Un its 8462-4 [facility] Blood Pressure-Diastolic 04/16/2023 93 mmHg 8480-6 [facility] Blood Pressure-Systolic 04/16/2023 1 52 mmHg 8867-4 [facility] Heart Rate 04/16/2023 63 /min 8310-5 [facility] Body Temperature 04/16/2023 97.5 F 54694-3 [facility] Oxygen Saturation 04/16/2023 96 % SOCIAL HISTORY * None PROCEDURES * None MEDICAL EQUIPMENT * Patient has no history of implantable devices ASSESSMENT * None TREATMENT PLAN Type Description Date APPOINTMENT If not feeling natacha r in 3 day(s), please see your primary care physician. If you do not have a primary care physician, please return to this clinic. 04/16/2023 Lab Tests None GOALS * None HEALTH CONCERNS * No Health Concerns FUNCTIONAL AND COGNITIVE STATUS * None CONSULTATION NOTES * None DISCHARGE SUMMARY NOTES * None HISTORY AND PHYSICAL NOTES * Reason for visit - Suture/Staple Removal IMAGING NOTES * None LABORATORY REPORT NARRATIVE NOTES * None PATHOLOGY REPORT NARRATIVE NOTES * None PROGRESS NOTES * None
[2024-03-19 05:03] LABS: Legionella Ag Urine Not Detected (Not Detected)
== END 2024-03-14 18:28 | disposition home or self-care (01) ==
LOC: HO.HSH 18:27
PROVIDERS: Visit Provider Internal Medicine Interventional Cardiology
DX: R05.9 Cough, unspecified (principal)
CPT/HCPCS: 87449